=== PATIENT | male | born 2000 | race Two or more races ===

== ENCOUNTER 2020-06-09 14:01 | Emergency (ER) | payer MEDICAID ==
[~2020-06-09] VITALS: Ht 188 cm; Wt 101.0 kg
[2020-06-09 14:12] VITALS: BP 146/91
[2020-06-09] MEDS ORDERED: ONDANSETRON 4MG ODT PO STA (14:41)
[2020-06-09] MEDS ORDERED: MAGNESIUM/ALUMINUM HYDROXIDE/SIMETHICONE 30ML UDC PO STA (14:41)
== END 2020-06-09 15:58 | disposition home or self-care (01) ==
LOC: ER 14:01
DX: R11.2 Nausea with vomiting, unspecified (principal); R19.7 Diarrhea, unspecified
CPT/HCPCS: 99283; Q0162